=== PATIENT | male | born 1995 | race Two or more races ===

== ENCOUNTER 2023-01-28 09:03 | Day surgery (SDC) | payer OTHER ==
[2023-01-25 14:17] LABS: Basophils # (auto) 0.1 10 ^3/uL (0-0.2); Basophils % (auto) 0.7 % (0.0-2.0); Eosinophils # (auto) 0.2 10 ^3/uL (0-0.8); Eosinophils % (auto) 2.1 % (0.0-7.0); Hematocrit 44.7 % (41.0-53.0); Hemoglobin 14.9 g/dL (13.5-17.5); Lymphocytes # (auto) 0.8 10 ^3/uL (0.4-5.4); Mean Corpuscular Hemoglobin 32.5 pg (28.0-32.0); Mean Corpuscular Hgb Conc. 33.5 g/dL (32.0-36.0); Mean Corpuscular Volume 97.1 fL (80.0-100.0); Monocytes # (auto) 0.3 10 ^3/uL (0-1.3); Monocytes % (auto) 3.8 % (0.0-12.0); Neutrophils # (auto) 6.5 10 ^3/uL (1.6-8.6); Neutrophils % (auto) 83.4 % (37.0-80.0); Red Cell Distribution Width 12.7 % (11.8-14.3); White Blood Cell 7.8 10^3/uL (4.4-10.8)
[2023-01-25 14:28] LABS: INR 1.09 (0.9-1.15); Partial Thromboplastin Time 29.5 SEC (24.5-34.5); Prothrombin Time 11.4 sec (9.3-11.8)
[2023-01-25 14:35] LABS: Alanine Aminotransferase 20 U/L (7-40); Albumin 4.9 g/dL (3.2-4.8); Alkaline Phosphatase 91 U/L (46-116); Anion Gap 6 (5-15); Aspartate Aminotransferase 15 U/L (13-40); BUN/Creatinine Ratio 9.5 (10.0-20.0); Bilirubin, Total 0.4 mg/dL (0.2-1.0); Blood Urea Nitrogen 7 mg/dL (9-23); Calcium 9.8 mg/dL (8.5-10.1); Carbon Dioxide 29 mmol/L (20-30); Chloride 106 mmol/L (98-107); Glucose 118 mg/dL (74-106); Potassium 4.1 mmol/L (3.5-5.1); Sodium 141 mmol/L (136-145); Total Protein 6.8 g/dL (5.7-8.2)
[~2023-01-28] VITALS: Ht 167.6 cm; Wt 43.5 kg
[~2023-01-28 09:03] MED LIST: APIX5TAB PO; LEVE100012 PO
[2023-01-28] MEDS ORDERED: LIDOCAINE VISCOUS 2% 15ML UD ONE (09:17)
[2023-01-28] MEDS ORDERED: SODIUM CHLORIDE LOCK 10 ML ONE (09:17)
[2023-01-28] MEDS ORDERED: diphenhdrAMINE HCL 50 MG/1 ML VL ONE (09:17)
[2023-01-28 09:55] VITALS: O2SAT 99
[2023-01-28] MEDS: MIDAZOLAM HCL 5 MG/ML-1ML VIAL ONE ×2 (09:58→10:01)
[2023-01-28] MEDS: fentaNYL CITRATE 100 MCG/2 ML VL ONE ×2 (09:58→10:01)
[2023-01-28 10:15] VITALS: RESP 15; TEMP 97.8; O2SAT 99
[2023-01-28 11:25] VITALS: BP 129/73; PULSE 67; RESP 13; O2SAT 95
== END 2023-01-28 12:01 | disposition home or self-care (01) ==
LOC: GI 09:03
PROVIDERS: ATTEND Internal Medicine Gastroenterology
DX: T85.518A Breakdown (mechanical) of other gastrointestinal prosthetic devices, implants and grafts, initial encounter (principal); Y83.8 Other surgical procedures as the cause of abnormal reaction of the patient, or of later complication, without mention of misadventure at the time of the procedure; G40.909 Epilepsy, unspecified, not intractable, without status epilepticus; Z79.01 Long term (current) use of anticoagulants; Z98.890 Other specified postprocedural states
CPT/HCPCS: 36415; 43246; 80053; 85025; 85610; 85730; B4087; J1200; J2250; J3010; J7030

== ENCOUNTER 2023-11-03 12:29 | Inpatient (IN) | payer MEDICAID, OTHER ==
[~2023-11-03] VITALS: Ht 157.5 cm; Wt 49.6 kg
[2023-11-03 13:30] VITALS: PULSE 68; RESP 12; O2SAT 97
[2023-11-03 13:39] LABS: Basophils # (auto) 0 10 ^3/uL (0-0.2); Basophils % (auto) 0.6 % (0.0-2.0); Eosinophils # (auto) 0.5 10 ^3/uL (0-0.8); Eosinophils % (auto) 6.7 % (0.0-7.0); Hematocrit 43.8 % (41.0-53.0); Hemoglobin 15.1 g/dL (13.5-17.5); Lymphocytes # (auto) 1.3 10 ^3/uL (0.4-5.4); Lymphocytes % (auto) 17.9 % (10.0-50.0); Mean Corpuscular Hemoglobin 33.6 pg (28.0-32.0); Mean Corpuscular Hgb Conc. 34.4 g/dL (32.0-36.0); Mean Corpuscular Volume 97.7 fL (80.0-100.0); Monocytes # (auto) 0.4 10 ^3/uL (0-1.3); Monocytes % (auto) 5.5 % (0.0-12.0); Neutrophils % (auto) 69.3 % (37.0-80.0); Nucleated Red Blood Cells % 0.1 %; Platelet Count (auto) 154 10^3/uL (140-450); Red Blood Cells 4.48 10^6/uL (4.5-5.90); White Blood Cell 7.2 10^3/uL (4.4-10.8)
[2023-11-03 13:46] LABS: Chloride 107 mmol/L (98-107); Sodium 140 mmol/L (136-145)
[2023-11-03 13:47] LABS: Anion Gap 5 (5-15); Carbon Dioxide 28 mmol/L (20-30)
[2023-11-03 13:52] LABS: BUN/Creatinine Ratio 13.8 (10.0-20.0); Blood Urea Nitrogen 9 mg/dL (9-23); Glucose 90 mg/dL (74-106)
[2023-11-03 13:56] LABS: INR 1.09 (0.9-1.15); Partial Thromboplastin Time 29.3 SEC (24.5-34.5); Prothrombin Time 11.5 sec (9.3-11.8)
[2023-11-03] MEDS ORDERED: LAMO25TA27 PO (15:13)
[2023-11-03] MEDS ORDERED: TRAZ-227 PO (15:13)
[2023-11-03] MEDS ORDERED: PANT40T PO (15:13)
[2023-11-03] MEDS ORDERED: LEVE100020 PO (15:13)
[2023-11-03] MEDS ORDERED: TIZA-142 PO (15:13)
[2023-11-03] MEDS ORDERED: FAMO40TA7 PO (15:13)
[2023-11-03] MEDS ORDERED: GABA-1250 PO (15:13)
[2023-11-03] MEDS ORDERED: BACL20TA PO (15:13)
[2023-11-03] MEDS ORDERED: Jevity 1.2 Cal/Fiber 1 Liter GT SCH (15:30)
[2023-11-03 19:30] VITALS: PULSE 87; RESP 10; O2SAT 97
[2023-11-03] MEDS: BACLOFEN 10 MG TAB PO SCH (22:00)
[2023-11-03] MEDS: traZODone HCL 50 MG TAB PO SCH (22:00)
[2023-11-03] MEDS: GABAPENTIN 300 MG CAP PO SCH (22:00)
[2023-11-03] MEDS: levETIRAcetam 500 MG TAB PO SCH (22:00)
[2023-11-04 03:42] LABS: Basophils # (auto) 0.1 10 ^3/uL (0-0.2); Basophils % (auto) 1.3 % (0.0-2.0); Eosinophils # (auto) 0.6 10 ^3/uL (0-0.8); Eosinophils % (auto) 9.3 % (0.0-7.0); Hematocrit 40.9 % (41.0-53.0); Lymphocytes # (auto) 1.9 10 ^3/uL (0.4-5.4); Lymphocytes % (auto) 29.2 % (10.0-50.0); Mean Corpuscular Hemoglobin 33.5 pg (28.0-32.0); Mean Corpuscular Hgb Conc. 34.3 g/dL (32.0-36.0); Mean Corpuscular Volume 97.5 fL (80.0-100.0); Monocytes # (auto) 0.4 10 ^3/uL (0-1.3); Monocytes % (auto) 6.4 % (0.0-12.0); Neutrophils # (auto) 3.4 10 ^3/uL (1.6-8.6); Neutrophils % (auto) 53.8 % (37.0-80.0); Nucleated Red Blood Cells % 0.1 %; Platelet Count (auto) 146 10^3/uL (140-450); Red Blood Cells 4.19 10^6/uL (4.5-5.90); Red Cell Distribution Width 13.6 % (11.8-14.3); White Blood Cell 6.3 10^3/uL (4.4-10.8)
[2023-11-04 03:54] LABS: Chloride 106 mmol/L (98-107); Sodium 139 mmol/L (136-145)
[2023-11-04 03:55] LABS: Anion Gap 4 (5-15); Carbon Dioxide 29 mmol/L (20-30)
[2023-11-04 03:56] LABS: Calcium 9.9 mg/dL (8.7-10.4)
[2023-11-04 03:59] LABS: INR 1.09 (0.9-1.15); Partial Thromboplastin Time 28.9 SEC (24.5-34.5); Prothrombin Time 11.5 sec (9.3-11.8)
[2023-11-04 04:00] LABS: Glucose 89 mg/dL (74-106)
[2023-11-04 04:01] LABS: BUN/Creatinine Ratio 15.9 (10.0-20.0); Blood Urea Nitrogen 11 mg/dL (9-23)
[2023-11-04 07:40] VITALS: PULSE 75; RESP 12; O2SAT 99
[2023-11-04] MEDS ORDERED: PATIENTS OWN MEDICATION (Famotidine 1 TAB) PO SCH (10:00)
[2023-11-04] MEDS: PANTOPRAZOLE 40 MG TAB PO SCH (10:00)
[2023-11-04 11:00] VITALS: PULSE 75; RESP 16; O2SAT 99
[2023-11-04 12:52] VITALS: BP 135/80; PULSE 83; RESP 14; TEMP 97.9; O2SAT 97
[2023-11-04 16:30] VITALS: BP 134/78; PULSE 61; RESP 14; TEMP 98.4; O2SAT 100
[2023-11-04 21:00] VITALS: BP 144/70; PULSE 82; RESP 20; TEMP 98.6; O2SAT 95
[2023-11-04 23:21] VITALS: BP 144/70; PULSE 82; RESP 20; TEMP 98.6; O2SAT 97
[2023-11-05 01:00] VITALS: BP 99/45; PULSE 71; RESP 16; TEMP 98.5; O2SAT 95
[2023-11-05 05:00] VITALS: BP 111/60; PULSE 50; RESP 15; TEMP 97.6; O2SAT 98
[2023-11-05 10:16] VITALS: BP 137/89; PULSE 86; RESP 20; TEMP 98.4; O2SAT 97
[2023-11-05 14:36] VITALS: BP 149/75; PULSE 98; RESP 19; TEMP 98.3; O2SAT 96
[2023-11-05 17:01] VITALS: BP 141/78; PULSE 87; RESP 19; TEMP 98.2; O2SAT 96
[2023-11-05 17:10] VITALS: BP 141/78; PULSE 87; RESP 19; TEMP 98.2; O2SAT 96
== END 2023-11-05 18:15 | disposition home health service (06) | DRG 252 ==
LOC: ER 12:29 → OVERFLOW 15:13 → CENTRAL 11-04 10:02
PROVIDERS: ADMIT Nurse Practitioner Acute Care; ATTEND Nurse Practitioner Acute Care
PROC: 0DH63UZ Insertion of Feeding Device into Stomach, Percutaneous Approach (ICD-10-PCS; principal; 2023-11-05)
DX: K94.23 Gastrostomy malfunction (principal); R64 Cachexia; G82.50 Quadriplegia, unspecified; G40.909 Epilepsy, unspecified, not intractable, without status epilepticus; Z87.820 Personal history of traumatic brain injury; Z83.3 Family history of diabetes mellitus; Z68.20 Body mass index [BMI] 20.0-20.9, adult
CPT/HCPCS: 36415; 74018; 80048; 85025; 85610; 85730; G0378

== ENCOUNTER 2024-03-09 01:18 | Emergency (ER) | payer MEDICAID ==
[~2024-03-09] VITALS: Ht 167.6 cm; Wt 45.4 kg
[~2024-03-09 01:18] MED LIST changes: +BACL20TA PO; +FAMO40TA7 PO; +GABA-1250 PO; +LAMO25TA27 PO; +LEVE100020 PO; +PANT40T PO; +TIZA-142 PO; +TRAZ-227 PO
--- NOTE | 2024-03-09 01:25 | ED.PDOC ---
History of Present Illness HPI Comments 28 year old male brought in by EMS with mother presents to the ED with a chief complaint of G-tube dislodgement onset 03/08/2024 around 23:30. Mother states she was going to give patient medication when she noticed g-tube was out, and she quickly insert it herself, then called EMS due to being unsure if it was placed correctly. Mother also states she believes the balloon is damaged/deflated. PMHx TBI, seizure. No other symptoms or modifying factors present at this time. Time Seen by MD: 00:18 Primary Care Provider: ANGÉLICA Reviewed Notes: Medications, Allergies Allergies: Coded Allergies: NO KNOWN ALLERGIES (Unverified , 01/25/23) Home Meds Reported Medications Tizanidine Hydrochloride (Tizanidine Hcl) 4 Mg Tab, PO 11/03/23 Baclofen (Baclofen) 20 Mg Tab, 1 TAB PO TID 11/03/23 Levetiracetam (Levetiracetam) 1,000 Mg Tab, PO 11/03/23 Lamotrigine (Lamotrigine) 25 Mg Tab, PO 11/03/23 Gabapentin (Gabapentin) 300 Mg Cap, PO 11/03/23 Trazodone Hcl (Trazodone Hcl) 50 Mg Tab, PO 11/03/23 Famotidine (Famotidine) 40 Mg Tab, 1 TAB PO DAILY 11/03/23 Pantoprazole Sodium Sesquihydr (Pantoprazole Sodium) 40 Mg Tab, 1 TAB PO DAILY 11/03/23 Apixaban Base (ELIQUIS) 5 Mg Tab, 5 MG PO BID, TAB 01/25/23 Levetiracetam (Keppra) 1,000 Mg Tab, 1.5 TAB PO BID, TAB 01/25/23 Information Source: Relative (Mother), Emergency Med Personnel Mode of Arrival: EMS Severity: Moderate Timing: Hours Duration: Since onset Prehospital treatment: None Past Medical History PAST MEDICAL HISTORY: Seizures Past Medical History (Other): TBI Surgical History (Other): IVC filter insertion, PEG Family History Family History: Family hx of DM Social History Smoker: Non-Smoker Alcohol: Denies ETOH Use Drugs: Denies Drug Use Lives In: Home Constitutional: denies: chills, diaphoresis, fatigue, fever, malaise, sweats, weakness, others EENTM: denies: blurred vision, double vision, ear bleeding, ear discharge, ear drainage, ear pain, ear ringing, eye pain, eye redness, hearing loss, mouth pain, mouth swelling, nasal discharge, nose bleeding, nose congestion, nose pain, photophobia, tearing, throat pain, throat swelling, voice changes, others Respiratory: denies: cough, hemoptysis, orthopnea, SOB at rest, shortness of breath, SOB with excertion, stridor, wheezing, others Cardiovascular: denies: chest pain, dizzy spells, diaphoresis, Dyspnea on exertion, edema, irregular heart beat, left arm pain, lightheadedness, palpitations, PND, syncope, others Gastrointestinal: reports: others (G-tube dislodge ); denies: abdomen distended, abdominal pain, blood streaked bowels, constipated, diarrhea, dysphagia, difficulty swallowing, hematemesis, melena, nausea, poor appetite, poor fluid intake, rectal bleeding, rectal pain, vomiting Genitourinary: denies: burning, dysuria, flank pain, frequency, hematuria, incontinence, penile discharge, penile sore, pain, testicle pain, testicle swelling, urgency, others Neurological: denies: dizziness, fainting, headache, left sided numbness, left sided weakness, numbness, paresthesia, pre-existing deficit, right sided numbness, right sided weakness, seizure, speech problems, tingling, tremors, weakness, others Musculoskeletal: denies: back pain, gout, joint pain, joint swelling, muscle pain, muscle stiffness, neck pain, others Integumetry: denies: bruises, change in color, change in hair/nails, dryness, laceration, lesions, lumps, rash, wounds, others Allergic/Immunocompromised: denies: Difficulty Healing, Frequent Infections, Hives, Itching, others Hematologic/Lymphatic: denies: anemia, blood clots, easy bleeding, easy bruising, swollen glands, others Endocrine: denies: excessive hunger, excessive sweating, excessive thirst, excessive urination, flushing, intolerance to cold, intolerance to heat, unexplained weight gain, unexplained weight loss, others Psychiatric: denies: anxiety, bipolar disorder, depression, hopeless, panic disorder, schizophrenia, sleepless, suicidal, others All Other Systems: Reviewed and Negative Physical Exam General Appearance: No Apparent Distress, Thin HEENT: PERRL/EOMI, Other (moist mucous membreanes) Neck: Full Range of Motion, Non-Tender, Normal Inspection Respiratory: Lungs Clear, No Accessory Muscle Use, No Respiratory Distress, Normal Breath Sounds Cardiovascular: No Edema, No JVD, Regular Rate/Rhythm Breast Exam: Deferred Gastrointestinal: Non Tender, Soft, Other (PEG site with tube in place, no erythema/edema/bleeding) Genitalia: Deferred Pelvic: Deferred Rectal: Deferred Extremities: Other (BU/L extremity contractures. No edema.) Neurologic: Alert, Other (non-verbal. Vegetative state is baseline per mother.) Cerebellar Function: NOT DONE Reflexes: NOT DONE Skin: Dry, Normal Color, Warm Lymphatic: NOT DONE Was a procedure done? Was a procedure done?: Yes Sedation Sedation?: No Other Procedure Procedure New PEG insertion Indication Damaged existing PEG Anesthetic None Prep Betadine Success Existing PEG was easily removed. Noted that the balloon was damaged. A new 22 Sami PEG was inserted into the stoma without resistance. The balloon was inflated to 15 mL. The tube was then secured with gauze and tape. Gastric contents were easily aspirated. Patient tolerated the procedure well. Informed consent obtained: Yes Risks, benefits, and alternati: Yes Differential Dx Considerations may include: Damaged PEG, dislodged PEG, infection, among others X-Ray, Labs, Meds, VS Vital Signs Date Time Temp Pulse Resp B/P (MAP) Pulse Ox O2 Delivery O2 Flow Rate FiO2 03/09/24 04:00 60 135/77 (96) 03/09/24 02:13 61 123/76 (92) 98 03/09/24 01:35 60 16 97 Room Air* 0 21 03/09/24 01:24 98.8 54 16 103/65 (78) 98 PROCEDURE(s): KUB - KUB ABDOMEN SINGLE VIEW REASON: with gastrografin for PEG placement ORDER NUMBER(s): [id number], ACCESSION NUMBER(s): [id number] Examination: KUB Clinical Indication: With gastrografin for PEG placement. Comparison: None. Technique: Multiple frontal views of the abdomen was obtained. Findings: PEG tube is seen with its tip in the stomach. The contrast administered through the PEG tube is seen to opacify the stomach, duodenum and proximal jejunal loops. Inferior vena cava filter is seen. The bowel gas pattern appears unremarkable. No overt pneumoperitoneum is noted. No abnormal calcifications are seen overlying the kidneys or the course of the ureters. No organomegaly. There is no acute osseous abnormality. Impression: 1. PEG tube is seen with its tip in the stomach. The contrast administered through the PEG tube is seen to opacify the stomach, duodenum and proximal jejunal loops. 2. Inferior vena cava filter is seen. Electronically Signed 03/09/2024 03:06 Sobeida Dixon X-Ray, Labs, Meds, VS Comment 28-year-old male with a history of seizures and TBI brought in by EMS from home for evaluation of a dislodged/damaged PEG tube. Vitals remarkable for heart rate 54 Exam remarkable for a damaged existing PEG tube. The stoma site appears clean, dry and intact. Rhythm strip independently interpreted by me: Sinus rhythm, rate 55, no ectopy. KUB with Gastrografin: Impression: 1. PEG tube is seen with its tip in the stomach. The contrast administered through the PEG tube is seen to opacify the stomach, duodenum and proximal jejunal loops. 2. Inferior vena cava filter is seen. On re-evaluation, the newly inserted tube was easily aspirated and flushed. Patient does not appear uncomfortable. Vitals have been stable. Abdominal exam is benign. Hospitalization was considered, however the newly inserted tube appears to be functioning properly, and I no longer feel hospitalization is necessary. Patient now appears stable for discharge with close outpatient follow-up with his coater carbon paper. Time of 1ST Reevaluation: 00:48 Reevaluation 1ST: Unchanged Time of 2ND Reevaluation: 01:45 Reevaluation 2ND: Improved Patient Education/Counseling: Diagnosis, Treatment Family Education/Counseling: Diagnosis, Treatment, Prognosis Additional Information I reviewed the following notes from patient's past medical encounters: The following tests were ordered, and results were reviewed by me: WHITNEY KUB ABDOMEN SINGLE VIEW Additional Information was gathered from interviewing the following independent historians: EMS, MOTHER I reviewed and agreed with the following test results read by other providers:WHITNEY KUB ABDOMEN SINGLE VIEW I discussed treatment and results with medical personnel and: mother, patient Departure 1 Departure Time of Disposition: 02:00 Impression: Primary Impression: PEG tube malfunction Additional Impression: PEG (percutaneous endoscopic gastrostomy) adjustment/replacement/removal Disposition: HOME / SELF CARE / HOMELESS Condition: Stable Additional Instructions: The newly inserted tube is in correct position and functioning. Follow-up with your GI specialist in 1-2 days. Discharged With: Relative (Mother) Critical Care Note Critical Care Time?: No Stability Stability form required: No Heart Score Heart Score: Heart Score Response (Comments) Value History N/A 0 EKG N/A 0 Age N/A 0 Risk Factors N/A 0 Troponin N/A 0 Total 0 I personally scribed for ARIEL CRUZ MD ([email or web address]) on 03/09/24 at 01:25. Electronically submitted by Marya Hurtado ([email or web address]). I personally scribed for ARIEL CRUZ MD ([email or web address]) on 03/09/24 at 01:49. Electronically submitted by Marya Hurtado ([email or web address]). ARIEL CRUZ MD Mar 09, 2024 01:25
[2024-03-09 01:35] VITALS: PULSE 60; RESP 16; O2SAT 97
[2024-03-09] MEDS: GASTROGRAFIN 30 ML SOL ONE (01:57)
[2024-03-09 02:13] VITALS: O2SAT 98
--- NOTE | 2024-03-09 03:08 | DVH ---
Examination: KUB Clinical Indication: With gastrografin for PEG placement. Comparison: None. Technique: Multiple frontal views of the abdomen was obtained. Findings: PEG tube is seen with its tip in the stomach. The contrast administered through the PEG tube is seen to opacify the stomach, duodenum and proximal jejunal loops. Inferior vena cava filter is seen. The bowel gas pattern appears unremarkable. No overt pneumoperitoneum is noted. No abnormal calcifications are seen overlying the kidneys or the course of the ureters. No organomegaly. There is no acute osseous abnormality. Impression: 1. PEG tube is seen with its tip in the stomach. The contrast administered through the PEG tube is s een to opacify the stomach, duodenum and proximal jejunal loops. 2. Inferior vena cava filter is seen. Electronically Signed 03/09/2024 03:06 Sobeida Dixon
[2024-03-09 04:00] VITALS: BP 135/77; PULSE 60
== END 2024-03-09 05:26 | disposition home or self-care (01) ==
LOC: EDBD 01:18 → EDUNIT# 01:18 → ER 01:18
DX: K94.23 Gastrostomy malfunction (principal); R56.9 Unspecified convulsions; Z98.890 Other specified postprocedural states; Z87.820 Personal history of traumatic brain injury
CPT/HCPCS: 43762; 74018; 99284; Q9963